=== PATIENT | male | born 1950 | race Caucasian/White ===

== ENCOUNTER → 2017-02-06 | Outpatient (CLI) | payer MEDICARE, OTHER | END | disposition home or self-care (01) | LOC: LAB.O 10:01 | PROVIDERS: ATTEND Internal Medicine Interventional Cardiology | DX: R07.9 Chest pain, unspecified (principal); R94.39 Abnormal result of other cardiovascular function study; Z01.812 Encounter for preprocedural laboratory examination ==

== ENCOUNTER → 2018-01-01 | Outpatient (CLI) | payer MEDICARE, OTHER ==
--- NOTE | 2018-01-01 11:01 | US ---
EXAM DESCRIPTION: Extremity,Upper RT Arteries: ULTRASOUND. CLINICAL HISTORY: PAIN IN RT ARM pulsation on the anterior upper right elbow. Rule out aneurysm. COMPARISON: None Available. TECHNIQUE: Transcutaneous scanning: Two-dimensional and Doppler modes. FINDINGS: Right subclavian artery, right axillary artery, right brachial artery and right radial and ulnar arteries are visualized. Normal caliber and normal triphasic arterial waveform. No aneurysms or stenoses. No soft tissue mass, vascular or otherwise. No distinct cyst or parenchymal edema. IMPRESSION: Arterial flow in the right upper extremity is unremarkable with no evidence of aneurysm or stenosis. No vascular mass. Electronically signed by: Jose Alejandro Engel MD 01/01/2018 11:00 AM CDT
== END ==
LOC: US 10:00
PROVIDERS: ATTEND Family Medicine
DX: M79.601 Pain in right arm (principal)

== ENCOUNTER 2018-04-13 22:04 | Emergency (ER) | payer MEDICARE, OTHER ==
[2018-04-13 22:36] VITALS: TEMP 98.2; O2SAT 99
[2018-04-13] MEDS ORDERED: predniSONE 20 MG TAB PO ONE (23:17)
--- NOTE | 2018-04-13 23:20 | ED.PDOC ---
History of Present Illness - General Chief Complaint: General Stated Complaint: bilateral feet swelling and itching since yesterda Time Seen by Provider: 04/13/18 22:04 Source: patient Exam Limitations: no limitations - History of Present Illness Initial Comments: the patient is a 68-year-old male presenting to the emergency room with 24-36 hours of mild swelling to bilateral feet. He apparently got stung by some insects on his feet yesterday and started having some swelling shortly after. He is presenting due to concern for other etiologies of swelling such as CHF or DVTs. He does not have any history of congestive heart failure and is currently in a regular rate and rhythm. No recent chest pain or shortness of breath. No palpable cords posteriorly. Swelling is trace and bilateral. No evidence of any overt cellulitis. He reports that his feet do itch. Timing/Duration: 24 hours Severity: mild Improving Factors: nothing Worsening Factors: nothing Associated Symptoms: denies symptoms Allergies/Adverse Reactions: Allergies Bupivacaine [From Marcaine HCl] Allergy (Verified 04/13/18 22:29) Lidocaine Allergy (Verified 02/06/16 12:11) Meperidine [From Demerol HCl] Allergy (Verified 02/06/16 12:12) Penicillin G Allergy (Verified 04/13/18 22:29) Home Medications: Ambulatory Orders Tamsulosin [Flomax] 0.4 mg PO DAILY 02/06/16 Morphine Sulfate [Ms Contin] 30 mg PO BID 02/09/16 HYDROcodone 7.5MG/APAP 325MG [[place] 7.5/325] 1 ea PO DAILY PRN 04/13/18 Pramipexole Dihydrochloride [Mirapex] 0.5 mg PO TID 04/13/18 Rosuvastatin Calcium [Crestor] 5 mg PO BEDTIME 04/13/18 SUMAtriptan SUCCINATE [Imitrex] 100 mg PO PRN 04/13/18 Review of Systems - Review of Systems Constitutional: States: no symptoms reported EENTM: States: no symptoms reported Respiratory: States: no symptoms reported Cardiology: States: no symptoms reported Gastrointestinal/Abdominal: States: no symptoms reported Genitourinary: States: no symptoms reported Musculoskeletal: States: no symptoms reported Skin: States: see HPI Neurological: States: no symptoms reported Endocrine: States: no symptoms reported All other Systems: No Change from Baseline Past Medical History (General) - Patient Medical History Hx Seizures: No Hx Stroke: No Hx Dementia: No Hx Asthma: No Hx of COPD: No Hx Cardiac Disorders: No Hx Congestive Heart Failure: No Hx Pacemaker: No Hx Hypertension: No Hx Thyroid Disease: No Hx Diabetes: No Hx Gastroesophageal Reflux: No Hx Renal Disease: No Hx Cancer: No Hx of HIV: No Hx Hepatitis C: No Hx MRSA: No Surgical History: appendectomy - Vaccination History Hx Tetanus, Diphtheria Vaccination: No Hx Influenza Vaccination: No Hx Pneumococcal Vaccination: No - Social History Hx Alcohol Use: No Family Medical History - Family History Mother Family History: Unknown Physical Exam - Physical Exam General Appearance: Alert, Comfortable, No apparent distress Eye Exam: bilateral normal Ears, Nose, Throat: hearing grossly normal - the patient seems to hear me well well speaking at a normal tone, normal pharynx Neck: non-tender, supple Respiratory: lungs clear, normal breath sounds, no respiratory distress, no accessory muscle use Cardiovascular/Chest: normal peripheral pulses, regular rate, rhythm, no edema Peripheral Pulses: radial,right: 2+, radial,left: 2+, dorsalis pedis,right: 2+, dorsalis pedis,left: 2+ Gastrointestinal/Abdominal: non tender, soft Rectal Exam: deferred Back Exam: no CVA tenderness, no vertebral tenderness Extremity: normal range of motion, non-tender, normal inspection, pedal edema - trace bilateral lower extremities below the knee., other - no palpable cords 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 As initially suspected by the patient himself, I do believe that this is a mild allergic reaction. The patient is being given a dose of oral prednisone. He can continue to use Benadryl as needed. A topical rehydrating lotion such as Vaseline intensive care may also prove beneficial in reducing the itch. D- dimer and BNP as well as kidney function all appear to be within normal limits. It is possible that he may be having some increased swelling from his medications that he normally takes. He does need to follow up with his primary care doctor later this week if the swelling persists. ER warnings were given. - Results/Orders Results/Orders: Laboratory Tests 04/13/18 04/13/18 04/13/18 22:28 22:28 22:28 WBC 5.3 RBC 4.12 L Hgb 12.6 L Hct 37.7 L MCV 91.3 MCH 30.5 MCHC 33.5 RDW 13.5 Plt Count 181 MPV 8.0 Absolute Neuts (auto) 2.50 Absolute Lymphs (auto) 2.00 Absolute Monos (auto) 0.50 Absolute Eos (auto) 0.10 Absolute Basos (auto) 0.10 Neutrophils % 48.0 Lymphocytes % 38.5 Monocytes % 9.7 H Eosinophils % 2.4 Basophils % 1.4 D-Dimer, Quantitative 0.33 Sodium 140 Potassium 3.6 Chloride 106 Carbon Dioxide 27 Anion Gap 10.6 L BUN 16 Creatinine 0.99 BUN/Creatinine Ratio 16.2 Random Glucose 109 H Serum Osmolality 281.2 Calcium 8.6 Total Bilirubin 0.7 AST 18 ALT 17 Alkaline Phosphatase 50 Creatine Kinase 146 CK-MB (CK-2) 3.4 CK-MB (CK-2) % Not Reportable Troponin I < 0.02 B-Natriuretic Peptide 71.0 Serum Total Protein 6.4 Albumin 3.6 Globulin 2.8 Albumin/Globulin Ratio 1.3 TSH 3.69 EKG shows mild sinus bradycardia at 53 bpm. Normal QT interval. Normal axis. Normal R-wave progression. No acute ST segment changes or T-wave changes concerning for immediate ischemia. Departure - Departure Clinical Impression: Peripheral edema Disposition: Discharge to Home or Self Care Condition: Fair Departure Forms: ED Discharge - Pt. Copy, Patient Portal Self Enrollment Instructions: Dependent Edema (DC) Diet: regular diet Activity: increase activity as tolerated Referrals: Bhavesh Moreno MD [Primary Care Provider] - 1-2 Weeks Home Medications: Ambulatory Orders Tamsulosin [Flomax] 0.4 mg PO DAILY 02/06/16 Morphine Sulfate [Ms Contin] 30 mg PO BID 02/09/16 HYDROcodone 7.5MG/APAP 325MG [[place] 7.5/325] 1 ea PO DAILY PRN 04/13/18 Pramipexole Dihydrochloride [Mirapex] 0.5 mg PO TID 04/13/18 Rosuvastatin Calcium [Crestor] 5 mg PO BEDTIME 04/13/18 SUMAtriptan SUCCINATE [Imitrex] 100 mg PO PRN 04/13/18 Additional Instructions: the patient is a 68-year-old male presenting to the emergency room secondary to bilateral lower extremity swelling over the last 24 hours. As initially suspected by the patient himself, I do believe that this is a mild allergic reaction. The patient is being given a dose of oral prednisone. He can continue to use Benadryl as needed. A topical rehydrating lotion such as Vaseline intensive care may also prove beneficial in reducing the itch. D- dimer and BNP as well as kidney function all appear to be within normal limits. It is possible that he may be having some increased swelling from his medications that he normally takes. He does need to follow up with his primary care doctor later this week if the swelling persists. ER warnings were given.
[2018-04-13 23:44] VITALS: BP 120/60
== END 2018-04-13 23:46 | disposition home or self-care (01) ==
LOC: ER 22:04
DX: R60.0 Localized edema (principal); R00.1 Bradycardia, unspecified; Z79.899 Other long term (current) drug therapy; Z88.0 Allergy status to penicillin; Z88.8 Allergy status to other drugs, medicaments and biological substances
CPT/HCPCS: 36415; 80053; 82550; 82553; 83880; 84443; 84484; 85025; 85379; 93005; J7512

== ENCOUNTER 2018-11-08 17:13 | Emergency (ER) | payer MEDICARE, OTHER ==
--- NOTE | 2018-11-08 18:07 | RAD ---
EXAM: Chest,1 View CLINICAL INDICATION: Chest discomfort COMPARISON: There is no previous study for comparison. FINDINGS: A single view of the chest was obtained. The heart size is normal. The pulmonary vascularity is unremarkable. The lungs are clear. There is no consolidation, infiltrate, pleural effusion, or pneumothorax. IMPRESSION: No evidence of active pulmonary disease. Electronically signed by: Navin Saha MD 11/08/2018 6:04 PM CDT
[2018-11-08 18:36] VITALS: TEMP 97.5
--- NOTE | 2018-11-08 18:42 | ED.PDOC ---
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 Timing/Duration: days - 4 days since Oct Severity: moderate Location: other - see hpi Activities at Onset: activity, rest Prior Chest Pain/Cardiac Workup: cardiac cath - see hpi Improving Factors: nothing Nitro Today/Relief: 0.4 mg x 1, provided by ED Aspirin Treatment Today: 325 mg x 1, provided at home Associated Symptoms: denies symptoms Allergies/Adverse Reactions: Allergies Penicillin G Allergy (Verified 11/08/18 17:34) Anaphylaxis Bupivacaine [From Marcaine HCl] Adverse Reaction (Verified 11/08/18 17:34) Other "Bottomed pt out" Lidocaine Adverse Reaction (Verified 11/08/18 17:34) Other "Bottomed patient out" Meperidine [From Demerol HCl] Adverse Reaction (Verified 11/08/18 17:34) Other Causes confusion Home Medications: Ambulatory Orders Tamsulosin [Flomax] 0.4 mg PO DAILY 02/06/16 Morphine Sulfate [Ms Contin] 30 mg PO BID 02/09/16 HYDROcodone 7.5MG/APAP 325MG [[place] 7.5/325] 1 ea PO DAILY PRN 04/13/18 Pramipexole Dihydrochloride [Mirapex] 0.5 mg PO TID 04/13/18 Rosuvastatin Calcium [Crestor] 5 mg PO BEDTIME 04/13/18 SUMAtriptan SUCCINATE [Imitrex] 100 mg PO PRN 04/13/18 Review of Systems - Review of Systems Constitutional: States: no symptoms reported EENTM: States: no symptoms reported Respiratory: States: no symptoms reported Cardiology: States: see HPI Gastrointestinal/Abdominal: States: no symptoms reported Genitourinary: States: no symptoms reported Musculoskeletal: States: no symptoms reported Skin: States: no symptoms reported Neurological: States: no symptoms reported All other Systems: Reviewed and Negative, No Change from Baseline Past Medical History (General) - Patient Medical History Hx Seizures: No Hx Stroke: No Hx Dementia: No Hx Asthma: No Hx of COPD: No Hx Cardiac Disorders: Yes - hyperlipidemia Hx Congestive Heart Failure: No Hx Pacemaker: No Hx Hypertension: No Hx Thyroid Disease: No Hx Diabetes: No Hx Gastroesophageal Reflux: Yes Hx Renal Disease: No Hx Cancer: Yes - Facial skin cancers Hx of HIV: No Hx Hepatitis C: No Hx MRSA: No Surgical History: appendectomy, other - left knee - Vaccination History Hx Tetanus, Diphtheria Vaccination: No Hx Influenza Vaccination: No Hx Pneumococcal Vaccination: No - Social History Hx Tobacco Use: Yes - Quit around 1979 Hx Alcohol Use: No Hx Physical Abuse: No Hx Emotional Abuse: No Family Medical History - Family History Mother Family History: Unknown Hx Cardiac Disease: Yes - dad Hx Family Cancer: Yes - breast-mom;dad-myelodyplasia Physical Exam - Physical Exam General Appearance: Alert, Comfortable, No apparent distress Eyes, Ears, Nose, Throat Exam: normal ENT inspection, pharynx normal Neck: non-tender, full range of motion, supple, normal inspection Respiratory: chest non-tender, lungs clear, normal breath sounds Cardiovascular/Chest: normal peripheral pulses, regular rate, rhythm, no murmur Peripheral Pulses: radial,right: 2+, radial,left: 2+ Gastrointestinal/Abdominal: normal bowel sounds, non tender, soft, no organomegaly Extremity: no pedal edema, no calf tenderness Neurologic: alert, oriented x 3 Progress - Progress Progress: 11/08/18 19:00 11/08/18 17:43 Telemetry .ONCE EKG Stat Pulse Ox Stat Pulse Oximetry Assessment DAILY Laboratory Results - last 24 hr 11/08/18 17:20 WBC 6.1 RBC 4.73 Hgb 14.4 Hct 43.2 MCV 91.2 MCH 30.4 MCHC 33.3 RDW 13.8 Plt Count 203 MPV 8.2 Absolute Neuts (auto) 3.20 Absolute Lymphs (auto) 2.20 Absolute Monos (auto) 0.60 Absolute Eos (auto) 0.10 Absolute Basos (auto) 0.00 Neutrophils % 52.0 Lymphocytes % 35.8 Monocytes % 9.9 H Eosinophils % 1.5 Basophils % 0.8 PT 10.3 INR 1.03 PTT (SP) 25.9 Sodium 137 Potassium 3.0 L Chloride 103 Carbon Dioxide 24 Anion Gap 13.0 BUN 17 Creatinine 0.86 BUN/Creatinine Ratio 19.8 Random Glucose 107 H Serum Osmolality 275.8 Calcium 8.7 Magnesium 1.9 Creatine Kinase 301 H* CK-MB (CK-2) 10.0 H* CK-MB (CK-2) % 3.32 Troponin I < 0.02 B-Natriuretic Peptide 32.1 11/08/18 19:01 Vital Signs - 8 hr 11/08/18 17:33 Temperature 97.5 F L Pulse Rate [ 59 L Apical] Respiratory 20 Rate Blood Pressure 140/79 [Left Arm] O2 Sat by Pulse 96 Oximetry 11/08/18 20:07 Stated most of the discomfort he felt aggravated by movement on lateral rotation with his torso. - Results/Orders Results/Orders: 11/08/18 17:43 Telemetry .ONCE EKG Stat Pulse Ox Stat Pulse Oximetry Assessment DAILY 11/08/18 19:48 EKG Assessment ONCE 11/08/18 20:00 EKG STAT Laboratory Results - last 24 hr 11/08/18 11/08/18 11/08/18 17:20 19:56 19:56 WBC 6.1 RBC 4.73 Hgb 14.4 Hct 43.2 MCV 91.2 MCH 30.4 MCHC 33.3 RDW 13.8 Plt Count 203 MPV 8.2 Absolute Neuts (auto) 3.20 Absolute Lymphs (auto) 2.20 Absolute Monos (auto) 0.60 Absolute Eos (auto) 0.10 Absolute Basos (auto) 0.00 Neutrophils % 52.0 Lymphocytes % 35.8 Monocytes % 9.9 H Eosinophils % 1.5 Basophils % 0.8 PT 10.3 INR 1.03 PTT (SP) 25.9 Sodium 137 Potassium 3.0 L Chloride 103 Carbon Dioxide 24 Anion Gap 13.0 BUN 17 Creatinine 0.86 BUN/Creatinine Ratio 19.8 Random Glucose 107 H Serum Osmolality 275.8 Calcium 8.7 Magnesium 1.9 Creatine Kinase 301 H* 291 H* CK-MB (CK-2) 10.0 H* 9.0 H* CK-MB (CK-2) % 3.32 3.09 Troponin I < 0.02 Cancelled < 0.02 B-Natriuretic Peptide 32.1 Discuss all test result with patient no myocardial injury with cardiac enzymes and EKG and offered hospital obs but wants to go home. - EKG/XRAY/CT EKG: Sinus, no ST T wave changes Comments: HR-61 XRAY: chest - no evidence of acute cardiopumonary disease/radiologist - Additional EKG/XRAY/Consults EKG #2: Ned, Sinus, no ST T wave changes Comments: HR-52 Departure - Departure Clinical Impression: Chest discomfort Time of Disposition: 20:41 Disposition: Discharge to Home or Self Care Condition: Fair Departure Forms: ED Discharge - Pt. Copy, Patient Portal Self Enrollment Instructions: DI for Chest Pain Referrals: Bhavesh Moreno MD [Primary Care Provider] - 1-2 Weeks Home Medications: Ambulatory Orders Tamsulosin [Flomax] 0.4 mg PO DAILY 02/06/16 Morphine Sulfate [Ms Contin] 30 mg PO BID 02/09/16 HYDROcodone 7.5MG/APAP 325MG [[place] 7.5/325] 1 ea PO DAILY PRN 04/13/18 Pramipexole Dihydrochloride [Mirapex] 0.5 mg PO TID 04/13/18 Rosuvastatin Calcium [Crestor] 5 mg PO BEDTIME 04/13/18 SUMAtriptan SUCCINATE [Imitrex] 100 mg PO PRN 04/13/18 Additional Instructions: Continue with all home medications;Return to Emergency Room as needed
[2018-11-08 21:22] VITALS: BP 117/73; O2SAT 98
== END 2018-11-08 20:53 | disposition home or self-care (01) ==
LOC: ER 17:13
DX: R07.89 Other chest pain (principal); R00.1 Bradycardia, unspecified; E78.5 Hyperlipidemia, unspecified; K21.9 Gastro-esophageal reflux disease without esophagitis; Z85.828 Personal history of other malignant neoplasm of skin; Z87.891 Personal history of nicotine dependence

== ENCOUNTER 2020-01-14 11:35 | Observation (INO) | payer MEDICARE, OTHER ==
[2020-01-14] MEDS ORDERED: ALUM & MAG HYDROX-SIMETHICONE 30 ML, LIDOCAINE VISCOUS 2% 15 ML PO ONE ×4 (11:56→14:00)
[2020-01-14] MEDS ORDERED: ASPIRIN (CHEWABLE) 81 MG TAB PO ONE (11:57)
--- NOTE | 2020-01-14 12:00 | ED.PDOC ---
History of Present Illness - General Chief Complaint: Chest Pain/SD Time Seen by Provider: 01/14/20 11:39 Source: patient Exam Limitations: no limitations - History of Present Illness Initial Comments: 69 yo M who presents for 2 weeks lower midsternal constant nonradiating CP, described as a dull ache. No alleviating or modifying factors. No hx of CAD, had a cath 3 yrs ago that was clean. Denies f/c, cough, congestion, SOB, abd pain, n/v/d, weakness, numbness, edema, urinary sx, COVID exposure, body aches. Allergies/Adverse Reactions: Allergies Penicillin G Allergy (Verified 01/14/20 14:43) Anaphylaxis Bupivacaine [From Marcaine HCl] Adverse Reaction (Verified 01/14/20 14:43) Other "Bottomed pt out" Lidocaine Adverse Reaction (Verified 01/14/20 14:43) Other "Bottomed patient out" Meperidine [From Demerol HCl] Adverse Reaction (Verified 01/14/20 14:43) Other Causes confusion Home Medications: Ambulatory Orders Tamsulosin [Flomax] 0.4 mg PO DAILY 02/06/16 Morphine Sulfate [Ms Contin] 30 mg PO BID 02/09/16 HYDROcodone 7.5MG/APAP 325MG [[place] 7.5/325] 1 ea PO DAILY PRN 04/13/18 Pramipexole Dihydrochloride [Mirapex] 0.5 mg PO TID 04/13/18 Rosuvastatin Calcium [Crestor] 5 mg PO BEDTIME 04/13/18 SUMAtriptan SUCCINATE [Imitrex] 100 mg PO PRN 04/13/18 Docusate Sodium [Colace Cap] 100 mg PO BID 01/14/20 Review of Systems - Review of Systems Constitutional: Denies: chills, fever EENTM: Denies: nose congestion, throat pain Respiratory: Denies: cough, short of breath, stridor, wheezing Cardiology: States: chest pain. Denies: palpitations, syncope Gastrointestinal/Abdominal: Denies: abdominal pain, diarrhea, nausea, vomiting Genitourinary: Denies: dysuria, frequency, hematuria Musculoskeletal: Denies: back pain, neck pain Skin: Denies: lesions, rash Neurological: Denies: headache, numbness, weakness Endocrine: Denies: increased thirst, increased urine Hematologic/Lymphatic: Denies: easy bleeding, easy bruising Past Medical History (General) - Patient Medical History Hx Seizures: No Hx Stroke: No Hx Dementia: No Hx Asthma: No Hx of COPD: No Hx Cardiac Disorders: Yes - hyperlipidemia Hx Congestive Heart Failure: No Hx Pacemaker: No Hx Hypertension: No Hx Thyroid Disease: No Hx Diabetes: No Hx Gastroesophageal Reflux: Yes Hx Renal Disease: No Hx Cancer: Yes - Facial skin cancers Hx of HIV: No Hx Hepatitis C: No Hx MRSA: No Surgical History: other - Vaccination History Hx Tetanus, Diphtheria Vaccination: No Hx Influenza Vaccination: No Hx Pneumococcal Vaccination: No - Social History Hx Tobacco Use: Yes - Quit around 1979 Hx Alcohol Use: No Hx Physical Abuse: No Hx Emotional Abuse: No Family Medical History - Family History Mother Family History: Unknown Hx Cardiac Disease: Yes - dad Hx Family Cancer: Yes - breast-mom;dad-myelodyplasia Physical Exam - Physical Exam General Appearance: Alert, Comfortable, No apparent distress, Well Developed, Well Nourished Eyes, Ears, Nose, Throat Exam: normal ENT inspection Neck: full range of motion, supple Respiratory: chest non-tender, lungs clear, normal breath sounds, no respiratory distress, no accessory muscle use Cardiovascular/Chest: normal peripheral pulses, regular rate, rhythm, no edema, no gallop, no JVD, no murmur Peripheral Pulses: radial,right: 2+, radial,left: 2+ Gastrointestinal/Abdominal: normal bowel sounds, non tender, soft, no organomegaly, no pulsatile mass Extremity: normal range of motion, non-tender, normal inspection, no pedal edema, no calf tenderness, normal capillary refill Neurologic: no motor/sensory deficits, alert, normal mood/affect, oriented x 3 Skin Exam: normal color, warm/dry Progress - Progress Progress: 01/14/20 12:09 Heart score of 5, plan for admission for CP rule out. 01/14/20 12:35 Discussed with pt and all results and need for admission, they agree with plan of care. All questions and concerns addressed. 01/14/20 12:37 Discussed with Melissa Tony midlevel for admitting provider, requests repeat trop and if remains wnl, will admit for observation. 01/14/20 14:12 Repeat troponin neg. Pt declines asa because already took BC powder at home. Teri Ortiz MD Emergency Medicine Physician Billing Number [id number] - Results/Orders Results/Orders: 01/14/20 11:45 EKG STAT 01/14/20 12:39 ED Intent to Admit Routine Laboratory Results - last 24 hr 01/14/20 01/14/20 01/14/20 11:40 11:40 11:40 WBC 5.7 RBC 4.72 Hgb 14.2 Hct 42.2 MCV 89.5 MCH 30.1 MCHC 33.6 RDW 13.8 Plt Count 197 MPV 8.2 Absolute Neuts (auto) 2.80 Absolute Lymphs (auto) 2.10 Absolute Monos (auto) 0.50 Absolute Eos (auto) 0.10 Absolute Basos (auto) 0.10 Neutrophils % 49.9 Lymphocytes % 36.9 Monocytes % 9.6 H Eosinophils % 2.6 Basophils % 1.0 Sodium 137 Potassium 3.9 Chloride 105 Carbon Dioxide 25 Anion Gap 10.9 L BUN 14 Creatinine 0.91 BUN/Creatinine Ratio 15.4 Random Glucose 106 H Serum Osmolality 274.7 L Calcium 8.9 Total Bilirubin 1.2 H AST 18 ALT 15 Alkaline Phosphatase 57 Troponin I < 0.02 Serum Total Protein 6.9 Albumin 4.0 Globulin 2.9 Albumin/Globulin Ratio 1.4 Lipase 01/14/20 01/14/20 11:45 13:40 WBC RBC Hgb Hct MCV MCH MCHC RDW Plt Count MPV Absolute Neuts (auto) Absolute Lymphs (auto) Absolute Monos (auto) Absolute Eos (auto) Absolute Basos (auto) Neutrophils % Lymphocytes % Monocytes % Eosinophils % Basophils % Sodium Potassium Chloride Carbon Dioxide Anion Gap BUN Creatinine BUN/Creatinine Ratio Random Glucose Serum Osmolality Calcium Total Bilirubin AST ALT Alkaline Phosphatase Troponin I < 0.02 Serum Total Protein Albumin Globulin Albumin/Globulin Ratio Lipase 22 CXR: EXAM DESCRIPTION: Chest,2 Views CLINICAL HISTORY: 69 years Male, CP COMPARISON: 08 November 2018 TECHNIQUE: PA/lateral FINDINGS: There is no cardiac or pulmonary abnormality. The lungs are clear. There is no effusion. IMPRESSION: 1. Normal two-view chest. Electronically signed by: Juan Neves MD 01/14/2020 11:58 AM CDT Vital Signs - 24 hr 01/14/20 01/14/20 01/14/20 11:35 11:50 12:00 Temperature 97.9 F Pulse Rate [ 63 50 L 51 L left brachial\\] Respiratory 20 20 12 Rate Blood Pressure 155/82 147/91 [left brachial] O2 Sat by Pulse 98 98 Oximetry 01/14/20 01/14/20 12:30 13:00 Temperature Pulse Rate [ 98 H 49 L left brachial\\] Respiratory 12 14 Rate Blood Pressure 145/88 133/84 [left brachial] O2 Sat by Pulse 98 100 Oximetry - EKG/XRAY/CT EKG: Ned, no ST T wave changes Comments: Rate 59, T wave flattening III Departure - Departure Clinical Impression: Chest pain, unspecified Qualifiers: Chest pain type: unspecified Qualified Code(s): R07.9 - Chest pain, unspecified Time of Disposition: 12:40 Disposition: Admit Patient Condition: Fair Home Medications: Ambulatory Orders Tamsulosin [Flomax] 0.4 mg PO DAILY 02/06/16 Morphine Sulfate [Ms Contin] 30 mg PO BID 02/09/16 HYDROcodone 7.5MG/APAP 325MG [[place] 7.5/325] 1 ea PO DAILY PRN 04/13/18 Pramipexole Dihydrochloride [Mirapex] 0.5 mg PO TID 04/13/18 Rosuvastatin Calcium [Crestor] 5 mg PO BEDTIME 04/13/18 SUMAtriptan SUCCINATE [Imitrex] 100 mg PO PRN 04/13/18 Docusate Sodium [Colace Cap] 100 mg PO BID 01/14/20
[2020-01-14] MEDS ORDERED: LIDOCAINE HCL 2% (MOUTH-THROAT) 15 ML UD ONE (12:07)
--- NOTE | 2020-01-14 14:18 | HP ---
SUPERVISING PHYSICIAN: Arpit Gonsalves MD CHIEF COMPLAINT: Chest pain. HISTORY OF PRESENT ILLNESS: This is a 69-year-old male who has had substernal chest pain that is nonradiating. He has had it for approximately two weeks. About two weeks ago, he started working on an automobile at his home and he has been leaning against his chest while working on the vehicle. It had gotten to the point that he felt like he better come in and have it checked out. He said it worsened more in the last day or so. He has no history of coronary artery disease. He did have a cath done about three years ago that had clear coronaries. He had no diaphoresis, nausea, vomiting, or shortness of breath. The pain is constant and nothing made the pain worse and nothing alleviated the pain. In the Emergency Room, his vital signs showed temperature 97.9, heart rate 63, blood pressure 155/82, respiratory rate 20, O2 98% on room air. Lab studies done showed a CBC that was within normal limits. Electrolytes were unremarkable. His total bilirubin was 1.2. Other liver function tests were normal. His first troponin was less than 0.02 and his second troponin in the Emergency Room was less than 0.02. His lipase was 22. Chest x-ray showed a normal two-view chest. Sinus rhythm on his EKG. I was called for hospital admission. PAST MEDICAL HISTORY: 1. Hyperlipidemia. 2. Migraine headaches. 3. Gastroesophageal reflux disease. 4. Restless leg syndrome. 5. Benign prostatic hypertrophy. PAST SURGICAL HISTORY: 1. Left total knee arthroplasty. 2. Vasectomy. 3. Appendectomy. 4. Removal of cyst from his shoulder. OUTPATIENT MEDICATIONS: Per the EMR and awaiting verification. ALLERGIES: MARCAINE, PENICILLIN. FAMILY HISTORY: Positive for cancer and coronary artery disease. SOCIAL HISTORY: He is retired. He quit smoking over 30 years ago. He denies any ETOH or illicit drug use. REVIEW OF SYSTEMS: Negative except as per history of present illness. PHYSICAL EXAMINATION: VITAL SIGNS: Temperature 98, heart rate 57, blood pressure 115/58, respiratory rate 15, O2 saturation 95% on room air. GENERAL: This is a 69-year-old male patient who looks younger than his stated age. He is in no acute distress. HEENT: Normocephalic, atraumatic. Pupils are equal and reactive. Oropharynx is clear. NECK: Supple without mass. RESPIRATORY: Essentially clear to auscultation bilaterally. CHEST: There is equal rise and fall of the chest with inspiration and expiration. CARDIOVASCULAR: Regular rate and rhythm. GASTROINTESTINAL: Abdomen is soft, nondistended, nontender. Bowel sounds are positive. EXTREMITIES: No cyanosis, clubbing or edema. NEUROLOGIC: Awake, alert and oriented times three. Cranial nerves II-XII are grossly intact as tested. LABORATORY: Labs and films are as per history of present illness. IMPRESSION: 1. Chest pain, rule out acute coronary syndrome. His initial cardiac enzymes have been negative and his EKGs show no acute changes. 2. History of migraine headaches. 3. History of restless leg syndrome. PLAN: The patient has been placed in observation. Chest pain guidelines have been initiated. We will complete those serial cardiac enzymes as well as his EKG overnight. He will have an echocardiogram in the morning. He will need close followup with Dr. Gonsalves after discharge for further evaluation and if he needs to be seen by a ultrasonic cleaner. He will have a proton pump inhibitor for ulcer prophylaxis as well as Lovenox for DVT prophylaxis. His home medications will be restarted as soon as they are verified. We will continue to monitor the patient closely and follow as needed. #[id number] [facility]
[2020-01-14] MEDS ORDERED: NITROGLYCERIN 0.2 MG/HR PATCH TD ONE (14:58)
[2020-01-14] MEDS ORDERED: MORPHINE SULFATE INJ 10 MG/ML VIAL IV PRN (15:00)
[2020-01-14] MEDS ORDERED: ACETAMINOPHEN 325 MG TAB PO PRN (17:25)
[2020-01-14] MEDS ORDERED: SODIUM CHLORIDE 0.9% (FLUSH) 10 ML SYG IV PRN (17:25)
[2020-01-14] MEDS ORDERED: NITROGLYCERIN 0.4 MG 25 EA TAB SL PRN (17:25)
[2020-01-14] MEDS ORDERED: IV SET AND CAP CHANGE INJ INJ SCH (17:30)
[2020-01-14] MEDS ORDERED: HYDROcodone 7.5MG/APAP 325MG 1 EA TAB PO PRN (17:31)
[2020-01-14] MEDS ORDERED: SUMAtriptan SUCCINATE 50 MG TAB PO PRN (17:31)
[2020-01-14] MEDS: MORPHINE ER 30 MG TAB PO SCH (20:28)
[2020-01-14] MEDS: SODIUM CHLORIDE 0.9% (FLUSH) 10 ML SYG IV SCH (20:30)
[2020-01-14] MEDS: DOCUSATE SODIUM 100 MG CAP PO SCH (20:30)
[2020-01-14] MEDS ORDERED: PRAMIPEXOLE DIHYDROCHLORIDE 0.5 MG PO SCH (21:00)
[2020-01-14] MEDS ORDERED: PRAMIPEXOLE 0.25 MG TAB ONE (21:00)
[2020-01-14] MEDS ORDERED: ENOXAPARIN SODIUM 40 MG/0.4 ML SYG SUBCU SCH (21:00)
[2020-01-14] MEDS ORDERED: NON-FORMULARY MEDICATION 1 EA MIS (Rosuvastatin Calcium [Crestor] 5 MG) PO SCH (21:00)
[2020-01-15] MEDS: MORPHINE ER 30 MG TAB PO SCH (08:05)
[2020-01-15] MEDS: DOCUSATE SODIUM 100 MG CAP PO SCH (08:05)
[2020-01-15] MEDS: SODIUM CHLORIDE 0.9% (FLUSH) 10 ML SYG IV SCH (08:12)
[2020-01-15] MEDS ORDERED: PRAMIPEXOLE 0.25 MG TAB PO SCH (09:00)
[2020-01-15] MEDS ORDERED: TAMSULOSIN 0.4 MG CAP PO SCH (09:00)
[2020-01-15] MEDS ORDERED: ASPIRIN TABLET 325 MG TAB PO SCH (09:00)
[2020-01-15 09:07] VITALS: O2SAT 92
[2020-01-15 12:06] VITALS: BP 118/70; TEMP 98
[2020-01-15] MEDS ORDERED: SIMVASTATIN 20 MG TAB PO SCH (21:00)
--- NOTE | 2020-01-17 15:15 | DS ---
SUPERVISING PHYSICIAN: Arpit Gonsalves MD ADMISSION DIAGNOSES: 1. Chest pain, rule out acute coronary syndrome. His initial cardiac enzymes have been negative and his EKGs show no acute changes. 2. History of migraine headaches. 3. History of restless leg syndrome. DISCHARGE DIAGNOSES: 1. Chest pain with no evidence of acute coronary syndrome with enzymes being negative. EKG showing no acute changes, patient being pain-free, etiology likely gastric but needs further workup as an outpatient. 2. History of migraine headache.s 3. History of restless leg syndrome. REASON FOR HOSPITALIZATION: This is a 69-year-old male who has had substernal chest pain that is nonradiating. He has had it for approximately two weeks. About two weeks ago, he started working on an automobile at his home and he has been leaning against his chest while working on the vehicle. It had gotten to the point that he felt like he better come in and have it checked out. He said it worsened more in the last day or so. He has no history of coronary artery disease. He did have a cath done about three years ago that had clear coronaries. He had no diaphoresis, nausea, vomiting, or shortness of breath. The pain is constant and nothing made the pain worse and nothing alleviated the pain. In the Emergency Room, his vital signs showed temperature 97.9, heart rate 63, blood pressure 155/82, respiratory rate 20, O2 98% on room air. Lab studies done showed a CBC that was within normal limits. Electrolytes were unremarkable. His total bilirubin was 1.2. Other liver function tests were normal. His first troponin was less than 0.02 and his second troponin in the Emergency Room was less than 0.02. His lipase was 22. Chest x-ray showed a normal two-view chest. Sinus rhythm on his EKG. Patient was placed in observation in stable condition. LABORATORY STUDIES: White count on discharge was 5,700, differential showed to be within normal limits. Hemoglobin 14, hematocrit 41.9. Chemistries: He had 4 sets of troponins, all less than 0.02. Electrolytes were within normal limits on discharge as well as his liver enzymes and his lipid panel. Lipase was normal. 12-lead EKG was showing no ST or T-wave changes to indicate ischemia or acute injury pattern, was showing sinus bradycardia at 59 to 60. HOSPITAL COURSE: Mr. Russo was placed in observation for further continued rule out chest pain. No recurrence of his chest pain. He did have some epigastric discomfort which was reproducible. EKG remained unchanged. He had no abnormal rhythms. Vital signs remained stable. It was felt he had shown clinical stability and could continue with outpatient management. Therefore, he was discharged in stable condition. DISCHARGE ASSESSMENT: VITAL SIGNS: Blood pressure was 118/70, pulse 60, temperature 98, oxygen saturation 93% on room air. GENERAL: The patient was resting comfortably, he did not appear to be in any distress. He was alert and oriented x3. CHEST: Lungs clear to auscultation bilaterally without rhonchi, rales, or wheezes. HEART: Regular rate and rhythm without appreciable murmurs, rubs, or gallops. ABDOMEN: Soft with some mild tenderness noted in the epigastrium with no rebound tenderness, no guarding. NEUROLOGIC: He was alert and oriented x3. PLAN: Mr. Russo was discharged for followup with his primary care physician, Dr. Gonsalves, as scheduled. He will also need further cardiac followup as well as some stress testing and as well as possibly further workup of his gastroesophageal reflux disease with his minor epigastric discomfort which could be resulting in his chest pain. He was to resume his home medications as prior to hospitalization. The only medication prescribed on discharge was Nitroglycerin p.r.n. as directed for chest pains. He was to follow a low cholesterol diet. He was to increase his activity as tolerated but not to have any strenuous activities until he was cleared by Dr. Gonsalves or has seen Cardiology. He was to return to the Emergency Department should he have any worsening or concerning symptoms. CONDITION ON DISCHARGE: Stable and improved. DISPOSITION: Patient was discharged home to the care of family members. #[id number] [facility]
== END 2020-01-15 10:55 | disposition home or self-care (01) ==
LOC: ER 11:35 → MS 14:16
PROVIDERS: ADMIT Nurse Practitioner Acute Care; ATTEND Nurse Practitioner Family
DX: R07.89 Other chest pain (principal); G43.909 Migraine, unspecified, not intractable, without status migrainosus; G25.81 Restless legs syndrome; E78.5 Hyperlipidemia, unspecified; K21.9 Gastro-esophageal reflux disease without esophagitis; N40.0 Benign prostatic hyperplasia without lower urinary tract symptoms; Z79.891 Long term (current) use of opiate analgesic; Z79.899 Other long term (current) drug therapy; Z88.0 Allergy status to penicillin; Z88.4 Allergy status to anesthetic agent; Z88.6 Allergy status to analgesic agent; Z82.49 Family history of ischemic heart disease and other diseases of the circulatory system; Z87.891 Personal history of nicotine dependence; Z96.652 Presence of left artificial knee joint; Z85.828 Personal history of other malignant neoplasm of skin
CPT/HCPCS: 96374; 96372; J2270; J1650; A4216; 82553 ×2; 80053 ×2; 80061; 36415 ×3; 85025 ×2; 82550 ×2; 83690; 84484 ×4; 71046; 94760; 99285; 93005 ×3

== ENCOUNTER → 2020-05-30 | Outpatient (CLI) | payer MEDICARE, OTHER | LOC: YCFC.O 10:21 | PROVIDERS: ATTEND Nurse Practitioner Family | DX: Z20.828 Contact with and (suspected) exposure to other viral communicable diseases (principal) ==

== ENCOUNTER → 2020-09-09 | Outpatient (CLI) | payer MEDICARE, OTHER | LOC: YCFC.O 10:07 | PROVIDERS: ATTEND Nurse Practitioner Family | DX: Z11.59 Encounter for screening for other viral diseases (principal) ==